=== PATIENT | female | born 1995 ===

== ENCOUNTER 2017-09-20 12:01 | Outpatient (CLI) | payer OTHER ==
[~2017-09-20 12:01] MED LIST: ADERAL; CATAFLAM50 MG PO; CEFTIN250 MG PO; LEXAPRO20 MG; SEASONIQUE1 BLIST PA; TYLENOL-CODEINE1 TAB PO
== END 2017-09-20 12:24 | disposition home or self-care (01) ==
LOC: SONOGRAMA 12:01
DX: S76.101A Unspecified injury of right quadriceps muscle, fascia and tendon, initial encounter (principal)

== ENCOUNTER 2019-11-21 13:07 | Outpatient (CLI) | payer OTHER | END 2019-11-21 15:56 | disposition home or self-care (01) | LOC: RAD 13:07 → MAMO-SONO 14:15 → RAD 15:56 | DX: M75.21 Bicipital tendinitis, right shoulder (principal); M75.51 Bursitis of right shoulder ==